=== PATIENT | male | born 1985 | race Caucasian/White ===

== ENCOUNTER 2025-04-20 05:54 | Emergency (ER) | payer OTHER, SELFPAY ==
[2025-04-20 05:56] VITALS: BP 139/97
[2025-04-20 06:03] VITALS: BMI 30.3
--- NOTE | 2025-04-20 06:17 | ED.GENMED ---
History of Present Illness
<Destiny Ochoa PA-C - Last Filed: 04/20/25 08:41>
General
Chief Complaint: Heart Rate Problem
Source: patient
Exam Limitations: none
Time Seen by Provider: 04/20/25 06:13
History of Present Illness
History of Present Illness:
40yoM with no significant past medical history presenting for evaluation of low heart rates. Patient receives an Apple Watch as a gift in December of this year. He has been receiving intermittent alerts stating that his heart rate has been low. The
alerts have been more frequent over the past week. He reports that his resting heart rate is between 45-48. He keeps waking up around 2-3am in the morning. Patient notices that his heart rate is in the 30s during REM sleep and his heart rate was
35 this morning when he woke up. Patient is asymptomatic at this time. He reports some dizziness if he stands up quickly but denies any recent syncopal episodes. He has been exercising more recently and denies any symptoms during exercise. He
was seen by his PCP a few weeks ago and had an EKG in the office which showed a heart rate of 45. He had a Holter monitor this month but has not received the results yet. He is scheduled to see cardiology tomorrow. Patient does not take any
medications.
Phy Exam
<Destiny Ochoa PA-C - Last Filed: 04/20/25 08:41>
General Physical Exam
General Presentation: well appearing and no apparent distress
General Skin: warm and dry
General Habitus: normal
General Mental: alert
ENT Exam
ENT Exam: normocephalic
Cardiovascular Exam
Cardiovascular Exam: no edema, no murmur and bradycardia
Pulmonary Exam
Pulmonary Exam: lungs clear, no respiratory distress, no rales, no crackles, no rhonchi and no wheezing
Neurological Exam
Neurological Exam: alert
[place] Coma Scale
Eye Opening: Spontaneous
Verbal Response: Oriented
Motor Response: Obeys Commands
GCS Total Score: 15
Skin Exam
Skin Exam: normal color and warm/dry
Psychiatric Exam
Psychiatric Exam: normal mood/affect
<Hayden Henry MD - Last Filed: 04/20/25 08:31>
[place] Coma Scale
GCS Total Score: 15
Course
<Destiny Ochoa PA-C - Last Filed: 04/20/25 08:41>
Orders/Labs/Results
Orders:
Orders
04/20/25 06:04
EKG [Electrocardiogram (*1)] Urgent
Reason for Study: Bradycardia / Tachycardia
EKG- Treatment ONCE
04/20/25 06:30
Cardiac Monitoring- Treatment ONCE
04/20/25 06:36
Complete Blood Count/With Diff Urgent
Comprehensive Metabolic Panel Urgent
Magnesium Urgent
TSH Reflex To Free T4 Urgent
Troponin I Urgent
Abnormal Lab Results
04/20/25
06:36
MPV 11.7 H fL
(7.4-10.4)
Absolute Monos (auto) 0.8 H 10^3/uL
(0.1-0.6)
Monocytes % 11.7 H %
(1.7-9.3)
Chloride 111 H mmol/L
(98-107)
Carbon Dioxide 19 L mmol/L
(22-30)
Glucose 104 H mg/dl
(70-99)
04/20/25 06:36
04/20/25 06:36
Vital Signs
Initial and Last Documented VS:
Initial Vital Signs
Temp Pulse Resp BP Pulse Ox
97.6 F 69 18 139/97 97
04/20/25 05:56 04/20/25 05:56 04/20/25 05:56 04/20/25 05:56 04/20/25 05:56
Last Documented Vital Signs
Temp Pulse Resp BP Pulse Ox
97.6 F 52 12 125/84 98
04/20/25 05:56 04/20/25 06:30 04/20/25 06:30 04/20/25 06:25 04/20/25 06:30
<Hayden Henry MD - Last Filed: 04/20/25 08:31>
Orders/Labs/Results
Orders:
Orders
04/20/25 06:04
EKG [Electrocardiogram (*1)] Urgent
Reason for Study: Bradycardia / Tachycardia
EKG- Treatment ONCE
04/20/25 06:30
Cardiac Monitoring- Treatment ONCE
04/20/25 06:36
Complete Blood Count/With Diff Urgent
Comprehensive Metabolic Panel Urgent
Magnesium Urgent
TSH Reflex To Free T4 Urgent
Troponin I Urgent
Abnormal Lab Results
04/20/25
06:36
MPV 11.7 H fL
(7.4-10.4)
Absolute Monos (auto) 0.8 H 10^3/uL
(0.1-0.6)
Monocytes % 11.7 H %
(1.7-9.3)
Chloride 111 H mmol/L
(98-107)
Carbon Dioxide 19 L mmol/L
(22-30)
Glucose 104 H mg/dl
(70-99)
04/20/25 06:36
04/20/25 06:36
Vital Signs
Initial and Last Documented VS:
Initial Vital Signs
Temp Pulse Resp BP Pulse Ox
97.6 F 69 18 139/97 97
04/20/25 05:56 04/20/25 05:56 04/20/25 05:56 04/20/25 05:56 04/20/25 05:56
Last Documented Vital Signs
Temp Pulse Resp BP Pulse Ox
97.6 F 52 12 125/84 98
04/20/25 05:56 04/20/25 06:30 04/20/25 06:30 04/20/25 06:25 04/20/25 06:30
<Destiny Ochoa PA-C - Last Filed: 04/20/25 08:41>
MDM/Problems Addressed
Differential Diagnosis Includes:
40yoM here because his Apple Watch has been alerting him to low heart rates. Resting HR in the 40s. HR was 35 when he woke up this morning at 2am. Currently asymptomatic. He does not take any medications. HR 69 in triage and in the 50-60 range
during exam. He is well appearing on exam and extremities are well perfused. Differential diagnosis includes but is not limited to: sinus bradycardia, thyroid dysfunction, electrolyte abnormality
Initial ED plan: EKG from triage shows sinus bradycardia without evidence of heart block. Will check cardiac labs, magnesium, and TSH.
<Destiny Ochoa PA-C - Last Filed: 04/20/25 08:41>
*Pulse Oximetry
SaO2: 97
Oxygen Mode of Delivery: Room air
Patient hypoxic: no (98%)
*EKG
Interpreted by ED Provider?: Yes
EKG Intrepretation Date: 04/20/25
Heart Rate: 53
Rate: bradycardiac
Rhythm: sinus
[place]: normal axis
Interval: normal interval
QRS Pattern: normal QRS
Ischemia: no ischemia
*Critical Care Note
Total Time (30-74mins, 75-104mins- exclusive of procedures): Not Applicable
<Destiny Ochoa PA-C - Last Filed: 04/20/25 08:41>
Update Note
Update Note:
Labs overall unremarkable including normal electrolytes, TSH, and troponin. Blood pressure stable throughout ED stay. Patient did receive his Holter monitor results while he was in the emergency department. Results showed sinus bradycardia with
nocturnal heart rate as low as 36. Correlation with sleep study recommended. No pauses or heart block noted. No indication for hospitalization. He does have an appointment with cardiology scheduled for tomorrow. Patient comfortable with
discharge and he left in stable condition.
ED Attending Note
<Destiny Ochoa PA-C - Last Filed: 04/20/25 08:41>
-
Portions of this chart may have been created with voice recognition software.� Occasional wrong word or��sound alike� substitutions may have occurred due to the inherent limitations of voice recognition software.
<Hayden Henry MD - Last Filed: 04/20/25 08:31>
ED Attending Note
Patient seen and examined by attending physician: Yes
I performed the substantive portion of visit, reviewed & personally made and approve the management plan that is documented in note by myself or CATHERINE.: Yes
ED Attending Note:
40-year-old male with concerns of low heart rate. Noted by his Apple Watch mostly in the middle the night. No acute symptoms. Was concerned that it may be was what woke him up. No syncope no chest pain no shortness of breath. Has been
exercising without issues. Had a Holter monitor that he actually got the results this morning that shows sinus bradycardia with a low heart rate of 35. Baseline heart rate has been in the 40s.
Patient is nontoxic in no distress. Speaking normally. Warm and dry. Perfusing well. Sinus bradycardia on the monitor. EKG is stable. Holter monitor reviewed. Nothing to support higher level heart block. Has an appointment with cardiology
tomorrow. Stable for discharge to follow-up with them tomorrow
Discharge Plan
Departure
Patient Disposition: Home (Routine Discharge)
Date of Disposition: 04/20/25
Time of Disposition: 08:21
Patient with high blood pressure during this ER visit?: No
Discharge Problem:
Sinus bradycardia
Instructions: Bradycardia
Prescriptions:
No Action
No Current Medications
0
Referrals:
UNKNOWN - PT DOES,NOT KNOW [Unknown Provider]
Activity Restrictions/Additional Instructions:
Please follow-up with cardiology tomorrow. Return to the ER with any worsening symptoms including loss of consciousness.
Interventions
Interventions:
*Risk Screen - Suicide Last Done: 04/20/25 05:56
*General Assessment Last Done: 04/20/25 05:56
*Neglect/Abuse Screening Last Done: 04/20/25 05:56
*ED COVID-19 Vaccine History Last Done: 04/20/25 05:56
ED- Cardiac Assessment Last Done: 04/20/25 06:37
ED- Pulmonary Assessment Last Done: 04/20/25 06:37
Discharge Date and Time
Print Language: PALAU[place]
[2025-04-20 06:25] VITALS: BP 125/84
[2025-04-20 06:55] LABS: % Basophils 1.1 % (0-2); % Eosinophils 4.1 % (0-6); % Immature Granulocytes 0.2 % (0-0.5); % Monocytes 11.7 % (1.7-9.3); % Neutrophils 48.9 % (42.2-75.2); Absolute Basophils 0.1 10^3/uL (0-0.2); Absolute Eosinophils 0.3 10^3/uL (0-0.7); Absolute Lymphocytes 2.2 10^3/uL (1.2-3.4); Absolute Monocytes 0.8 10^3/uL (0.1-0.6); Absolute Neutrophils 3.1 10^3/uL (1.4-6.5); Hematocrit 42.5 % (39.0-52.0); Hemoglobin 14.7 g/dL (13.0-18.0); Mean Corp Hgb Conc. 34.6 g/dL (33.0-37.0); Mean Corpuscular Hgb 29.6 pg (27.0-31.0); Mean Corpuscular Volume 85.5 fL (80.0-94.0); Mean Platelet Volume 11.7 fL (7.4-10.4); Nucleated Red Blood Cells % 0 % (-); Platelet Count 242 10^3/uL (130-400); Red Blood Cell Count 4.97 10^6/uL (4.70-6.10); Red Cell Dist. Width 13.9 % (11.5-14.5); White Blood Cell Count 6.4 10^3/uL (4.8-10.8)
[2025-04-20 07:01] VITALS: BP 105/69
[2025-04-20 07:33] LABS: Troponin I < 0.012 ng/ml
[2025-04-20 07:51] LABS: TSH Reflex To Free T4 2.02 uIU/ml (0.47-4.68)
[2025-04-20 07:55] LABS: ALT (SGPT) 29 U/L (0-50); AST (SGOT) 27 U/L (17-59); Albumin 4.3 g/dl (3.5-5.0); Alkaline Phosphatase 48 U/L (38-126); Blood Urea Nitrogen 18 mg/dl (9-20); Calcium 9.1 mg/dl (8.4-10.2); Carbon Dioxide 19 mmol/L (22-30); Chloride 111 mmol/L (98-107); Estimated Creatinine Clearance > 125 ml/min; Glucose 104 mg/dl (70-99); Potassium 4.6 mmol/L (3.5-5.1); Sodium 139 mmol/L (135-145); Total Bilirubin 0.5 mg/dl (0.2-1.3); Total Protein 7.2 g/dl (6.3-8.2); eGFR > 60.00
[2025-04-20 08:20] VITALS: BP 108/80
[2025-04-20 08:40] VITALS: BP 108/80
== END 2025-04-20 08:42 | disposition home or self-care (01) ==
LOC: EMR 05:54
PROVIDERS: Physician Assistant; EMERGENCY PHYSICIAN Emergency Medicine; FAMILY PHYSICIAN Family Medicine
DX: R00.1 Bradycardia, unspecified (principal)
CPT/HCPCS: 99283; 80053; 83735; 84443; 84484; 85025; 93005